=== PATIENT | male | born 1985 | race Asian ===

== ENCOUNTER 2017-05-27 21:33 | Emergency (ER) | payer BC ==
[~2017-05-27] VITALS: Ht 175.3 cm; Wt 95.5 kg
[~2017-05-27 21:33] MED LIST: CLARITIN 1010 MG/TAB PO; FLEXERIL 1010 MG/TAB PO; FLONASEALLERGY NS; ZANTAC 150MG T150 MG PO
[2017-05-27 21:37] VITALS: TEMP 98.6
[2017-05-27] MEDS ORDERED: BACTRIM DS 8001 TAB PO (22:10)
[2017-05-27 22:39] VITALS: BP 131/85; PULSE 97
== END 2017-05-27 22:46 | disposition home or self-care (01) ==
LOC: COL.ER 21:33
DX: L03.116 Cellulitis of left lower limb (principal)

== ENCOUNTER → 2019-07-26 | Outpatient (CLI) | payer BC ==
[~2019-07-26] MED LIST changes: +BACTRIM DS 8001 TAB PO
== END ==
LOC: COL.RAD 07:30
DX: R10.11 Right upper quadrant pain (principal)

== ENCOUNTER 2023-09-28 22:38 | Emergency (ER) | payer OTHER ==
[~2023-09-28] VITALS: Ht 177.8 cm; Wt 104.1 kg
[2023-09-28] MEDS ORDERED: Ketorolac 15 MG/ML VIAL IV ONE (23:15)
[2023-09-28] MEDS ORDERED: Morphine 4 MG/ML VIAL IV ONE (23:15)
[2023-09-28] MEDS ORDERED: LR 1,000 ML IV ONE (23:15)
[2023-09-29] LABS: BASO % 0.3 % (0.0-2.0); EOS # 0.1 K/mm3 (0.0-0.7); EOS % 0.6 % (0.0-4.0); GRAN # 8.5 K/mm3 (1.4-6.5); GRAN % 81.9 % (42.2-75.2); HEMATOCRIT 44.6 % (42.0-52.0); HEMOGLOBIN 13.5 g/dl (13.5-18.0); LYMPH # 1.1 K/mm3 (1.2-3.4); LYMPH % 10.8 % (20.0-51.0); MEAN CELL VOLUME 69 fl (80.0-100.0); MEAN CORPUSCULAR HEMOGLOBIN 21 pg (27-31); MEAN CORPUSCULAR HGB CONC 30 g/dl (33.0-37.0); MEAN PLATELET VOLUME 10.7 fl (7.4-10.4); MONO # 0.6 K/mm3 (0.1-0.6); MONO % 6.2 % (1.7-9.3); PLATELET COUNT 244 K/mm3 (130-400); RED BLOOD COUNT 6.49 M/mm3 (4.20-5.60); REDCELL DISTRIBUTION WIDTH-CV 15.3 % (11.5-14.5)
[2023-09-29 00:13] LABS: BILIRUBIN,TOTAL 0.6 mg/dL (0.2-1.2); C-REACTIVE PROTEIN 0.34 mg/dL (0.00-0.50); CALCIUM 9.3 mg/dL (8.4-10.2); CREATININE, serum 1.17 mg/dL (0.72-1.25); POTASSIUM 4.1 mEq/L (3.5-4.5); TOTAL PROTEIN 7.8 g/dl (6.2-8.1)
[2023-09-29 00:25] LABS: ALBUMIN 4.4 g/dL (3.5-5.0)
[2023-09-29 00:30] VITALS: TEMP 99.3
[2023-09-29] MEDS ORDERED: Doxycycline Monohydrate 100 MG CAP PO ONE (00:30)
[2023-09-29] MEDS ORDERED: DOXYCYCLINE 10100 MG PO (00:31)
[2023-09-29 00:42] VITALS: BP 128/88; PULSE 82
[2023-09-29 23:41] LABS: LYME DISEASE ANTIBODIES Negative (Negative)
[2023-10-03 14:12] LABS: E.CHAFFEENSIS IGG AB Negative (())
== END 2023-09-29 00:42 | disposition home or self-care (01) ==
LOC: COL.ER 22:38
PROVIDERS: Emergency Medicine
DX: L03.116 Cellulitis of left lower limb (principal)
CPT/HCPCS: J1885; J2270; J7120